=== PATIENT | female | born 1980 | race Caucasian/White ===

== ENCOUNTER 2022-09-18 16:08 | Emergency (ER) | payer MEDICAID ==
[~2022-09-18] VITALS: Ht 167.6 cm; Wt 47.6 kg
[2022-09-18 16:22] VITALS: BP 145/100; PULSE 65; RESP 16; TEMP 98.2; O2SAT 100
[2022-09-18 19:17] LABS: BASOPHILS % 0.2 % (0.0-2.0); EOSINOPHILS % 1.1 % (0.0-5.0); HEMATOCRIT. 38.4 % (36.0-48.0); HEMOGLOBIN. 12.7 g/dL (12.0-16.0); LYMPHOCYTES % 34.5 % (20.0-50.0); MEAN CORPUSCULAR HEMOGLOBIN 30.6 pg (28.0-32.0); MEAN CORPUSCULAR VOLUME 92.4 fL (81.0-99.0); MEAN PLATELET VOLUME 7.5 fl (7.4-10.4); MONOCYTES % 5.2 % (2.0-8.0); PLATELET 319 x1000/uL (130-400); RED BLOOD CELL COUNT 4.16 mill/uL (4.2-5.4); RED CELL DISTRIBUTION WIDTH 14.9 % (11.6-14.6)
[2022-09-18 19:19] LABS: CHLORIDE 106 mEq/L (98-107)
== END 2022-09-19 00:14 | disposition left against medical advice (07) ==
LOC: ER 16:08
DX: Z53.21 Procedure and treatment not carried out due to patient leaving prior to being seen by health care provider (principal)
CPT/HCPCS: 36415; 80053; 85025; 99281